=== PATIENT | male | born 1995 | race Caucasian/White ===

== ENCOUNTER 2017-01-20 12:55 | Emergency (ER) | payer OTHER ==
[2017-01-20] MEDS ORDERED: Lidocaine 2% PF * 5 ML VIAL ONE (13:43)
--- NOTE | 2017-01-20 13:47 | UC ---
Skin Complaint HPI - HPI Summary HPI Summary: Redness, swelling, painful lump L forearm starting a little over a week ago. Pt reports this was the last site he used to inject heroin. Denies hx of hospitalization for skin infections in the past. - History of Current Complaint Chief Complaint: UCSkin Time Seen by Provider: 01/20/17 13:35 Stated Complaint: ABCESS ON ARM Hx Obtained From: Patient Onset/Duration: Gradual Onset, Lasting Days Skin Exposure Onset/Duration: Days Ago Timing: Constant Onset Severity: Mild Current Severity: Moderate Location: Discrete Character: Pain, Redness, Raised Aggravating: Touch Alleviating: Nothing Associated Signs & Symptoms: Positive: Drainage - Allergy/Home Medications Allergies/Adverse Reactions: Allergies Allergy/AdvReac Type Severity Reaction Status Date / Time No Known Allergies Allergy Verified 05/08/16 21:59 Review of Systems Constitutional: Negative Skin: Other - L forearm lump Eyes: Negative ENT: Negative Respiratory: Negative Cardiovascular: Negative Gastrointestinal: Negative Genitourinary: Negative Motor: Negative Neurovascular: Negative Musculoskeletal: Negative Neurological: Negative Psychological: Negative All Other Systems Reviewed And Are Negative: Yes PMH/Surg Hx/FS Hx/Imm Hx Endocrine History Of: Denies: Diabetes, Thyroid Disease Cardiovascular History Of: Denies: Cardiac Disorders, Hypertension Respiratory History Of: Denies: COPD, Asthma GI/ History Of: Denies: Ulcer - Surgical History Surgical History: None - Family History Known Family History: Positive: None - Social History Alcohol Use: Occasionally Substance Use Type: Heroin Substance Use Comment - Amount & Last Used: daily Smoking Status (MU): Heavy Every Day Tobacco Smoker Type: Cigarettes Amount Used/How Often: 1/2 ppd Physical Exam Triage Information Reviewed: Yes Appearance: Well-Appearing, Pain Distress - with wound exam Vital Signs: Initial Vital Signs Temp 97.9 F 01/20/17 13:27 Pulse 91 01/20/17 13:27 Resp 18 01/20/17 13:27 BP 152/62 01/20/17 13:27 Pulse Ox 100 01/20/17 13:27 Vital Signs Reviewed: Yes Eye Exam: Normal, Other - PERRL Eyes: Positive: Conjunctiva Clear ENT Exam: Normal ENT: Positive: Normal ENT inspection, Hearing grossly normal, Pharynx normal, TMs normal Neck exam: Normal Neck: Positive: Supple, Nontender, No Lymphadenopathy Respiratory Exam: Normal Respiratory: Positive: Chest non-tender, Lungs clear, Normal breath sounds, No respiratory distress, No accessory muscle use Cardiovascular Exam: Normal Cardiovascular: Positive: RRR, No Murmur Musculoskeletal Exam: Normal Musculoskeletal: Positive: Strength Intact Neurological Exam: Normal Psychological Exam: Normal Skin Exam: Other - L forearm abscess spontaneously draining with surrounding cellulitis. Unable to feel edges of abscess due to iduration and cellulitis. Course/Dx - Diagnoses Provider Diagnoses: L forearm abscess I&D. L forearm cellulitis. IV drug abuse - Physician Notification/Consults Discussed Patient Care With: Dr. Hamm Time Discussed With Above Provider: 14:06 Instructed by Provider To: MD Will See In ED Procedures - Incision and Drainage Site: L forearm Anesthesia: Local - 2% Instrument(s): Scalpel - large pus return with foul odor, arm still firm and very painful after procedure Packing: Other - none; pt sent to ED for further evaluation and possible secondary procedure Discharge - Discharge Plan Condition: Stable Disposition: TRANS HIGHER LVL OF CARE FAC
[2017-01-20] MEDS ORDERED: Tetan/Diph/Pertus SYR(Tdap)* 0.5 ML SYR(BOOSTRIX) use SYR IM ONE (14:02)
[2017-01-20 14:16] VITALS: BP 131/70
== END 2017-01-20 14:19 | disposition short-term general hospital (02) ==
LOC: UCEAST 12:55
DX: L02.414 Cutaneous abscess of left upper limb (principal); L03.114 Cellulitis of left upper limb; F11.10 Opioid abuse, uncomplicated; F17.210 Nicotine dependence, cigarettes, uncomplicated
CPT/HCPCS: 10060; 87070; 87076; 87077; 87205; 87640; 87641; 90471; 90715; 99212; G0463

== ENCOUNTER 2017-01-20 14:55 | Emergency (ER) | payer OTHER ==
[2017-01-20] MEDS ORDERED: Clindamycin 600 MG IVPREMIX(* 600 MG in PREMIX* 0 ML IV ONE (15:51)
[2017-01-20] MEDS ORDERED: Vancomycin(*) 1,000 MG in NS 0.9% 250 ML* 250 ML IVPB ONE ×2 (15:51→17:00)
[2017-01-20] MEDS ORDERED: NS 0.9% 1000 ML* 1,000 ML IV ONE (15:51)
[2017-01-20] MEDS ORDERED: Piperac/Tazob 3.375 gm in NS* 3.375 GM/100 ML BAG IVPB ONE (15:55)
--- NOTE | 2017-01-20 16:04 | ED ---
Skin Complaint - HPI Summary HPI Summary: Patient is a 21yo IV drug user presents after transfer from [facility] with swelling, painful, raised, foul-odor lump on left forearm just distal to the left elbow. [facility] completed a I and D with moderate amount of drainage, but lump still with induration and pain. Patient also notes to limited ROM. Patient is able to flex and extend slowly with "extreme pain" and clench fist with difficulty. Patient notes 1 week history of lump which has progressively become worse since this am. He has felt diaphoretic with chills and generalized malaise. Slight scleral icterus on examination. Last injection of heroin 7 days ago. Previous Hx of MRSA per patient, but not related to IV drug use. Denies PRADO, N/V. Patient otherwise healthy and takes no medications. Denies SOB or chest pain. Patient admits to sharing needles. - History of Current Complaint Chief Complaint: EDRashSkinAbscess Time Seen by Provider: 01/20/17 15:35 Stated Complaint: SENT BY [facility] Hx Obtained From: Patient Onset/Duration: Started Days Ago Skin Exposure Onset/Duration: Weeks Ago Onset Severity: Severe Current Severity: Severe Pain Intensity: 9 Pain Scale Used: 0-10 Numeric Skin Location: Discrete - left forearm distal to the left elbow Aggravating Symptom(s): Touch Alleviating Symptom(s): Nothing Associated Signs & Symptoms: Drainage, Tenderness, Red Streaks - Allergy/Home Medications Allergies/Adverse Reactions: Allergies Allergy/AdvReac Type Severity Reaction Status Date / Time No Known Allergies Allergy Verified 01/20/17 14:57 PMH/Surg Hx/FS Hx/Imm Hx Previously Healthy: Yes Endocrine/Hematology History: Denies: Hx Diabetes, Hx Thyroid Disease Cardiovascular History: Denies: Hx Hypertension Respiratory History: Denies: Hx Asthma, Hx Chronic Obstructive Pulmonary Disease (COPD) GI History: Denies: Hx Ulcer - Cancer History Cancer Type, Location and Year: none Infectious Disease History: Yes Infectious Disease History: Reports: Hx of Known/Suspected MRSA Denies: Hx Hepatitis, Hx Human Immunodeficiency Virus (HIV), History Other Infectious Disease, Traveled Outside the [place] in Last 30 Days - Family History Known Family History: Positive: None - Social History Occupation: Unemployed Lives: With Family Alcohol Use: Occasionally Hx Substance Use: Yes Substance Use Type: Reports: Heroin Substance Use Comment - Amount & Last Used: last dose two weeks ago Smoking Status (MU): Heavy Every Day Tobacco Smoker Type: Cigarettes Amount Used/How Often: 1/2 ppd Review of Systems Positive: Fatigue Eyes: Negative Cardiovascular: Negative Respiratory: Negative Positive: Abdominal Pain - mild - diffuse Positive: no symptoms reported, see HPI Musculoskeletal: Negative Positive: Other - abscess distal to elbow of right forearm with drainage Neurological: Negative Psychological: Normal All Other Systems Reviewed And Are Negative: Yes Physical Exam Triage Information Reviewed: Yes Vital Signs On Initial Exam: Initial Vitals Temp Pulse Resp BP Pulse Ox 97.4 F 93 16 113/87 100 01/20/17 14:57 01/20/17 14:57 01/20/17 14:57 01/20/17 14:57 01/20/17 14:57 Vital Signs Reviewed: Yes Appearance: Positive: Well-Appearing, Pain Distress Skin: Positive: Warm, Skin Color Reflects Adequate Perfusion, Weeping Skin/ Lesions, Other - abscess of left forearm distal to elbow approximately 2cm in length with continuous draiange. Red streaking 3cm proximal to the elbow and down to the wrist, no hand involvement. Eyes: Positive: Normal, DE, Other: - slight scleral icterus Neck: Positive: Supple, No Lymphadenopathy Respiratory/Lung Sounds: Positive: Clear to Auscultation, Breath Sounds Present Cardiovascular: Positive: Normal Abdomen Description: Positive: Other: - slight diffuse tenderness present for 1 week - generalized malaise Bowel Sounds: Positive: Present Musculoskeletal: Positive: Normal Neurological: Positive: Sensory/Motor Intact, Alert, Oriented to Person Place, Time, Speech Normal Psychiatric: Positive: Normal - [place] Coma Scale Coma Scale Total: 15 Diagnostics - Vital Signs Vital Signs Temp Pulse Resp BP Pulse Ox 01/20/17 15:38 89 100 01/20/17 15:36 169/82 01/20/17 14:57 97.4 F 93 16 113/87 100 - Laboratory Result Diagrams: 01/20/17 15:55 01/20/17 15:55 Lab Statement: Any lab studies that have been ordered have been reviewed, and results considered in the medical decision making process. Re-Evaluation - Re-Evaluation First Eval Change: Unchanged - patient still complains of pain in forearm Second Eval Change: Improved - still with pain - giving toradol. patient unable to take opioids. Encouraged outpatient IBUprofen Course/Dx - Course Course Of Treatment: CT of arm shows cellulitis and myositis with a small abscess collection within the superficial aspect of the probable brachioradilais. Dr. Medellin consulted. D/t CT impression and patient afebrile and otherwise stable, will send home with outpatient abx therapy and follow up on Sunday with Dr. Medellin. Patient requesting HIV panel drawn. Elevated liver enzymes returned and hepatitis panel requested. Hep panel results will be available tomorrow on 01/21/17. Patient encouraged to follow up with infectious disease, Dr. Ponce for possible hepatitis. Patient admits to history of sharing needles. US gallbladder shows significantly thickened gallbladder. Likely d/t to secondary disease such as hepatitis. Will have patient follow up with Dr. Mccain regarding this issue. Dr Sheets consulted throughout care process. MRSA negative on wound culture. Will continue to treat with bactrim based on Dr Medellin recommendations as well as UPTODATE. Patient informed of results and instructions from Dr. Medellin for how to care for abscess until follow up. Patient agrees to call and follow up next week with all 3 MD's and accepting of discharge home. Patient is currently trying to seek addiction therapy and agrees to not use. Educated patient about drug abuse and recurrence of MRSA infection if IV drug use continues. Patient agrees. - Diagnoses Provider Diagnoses: Cutaneous abscess of left upper extremity Discharge - Discharge Plan Condition: Stable Disposition: HOME Prescriptions: Sulfamethox/Trimethoprim DS* [Bactrim DS 800/160 TAB*] 1 tab PO BID #20 tab Patient Education Materials: Abscess (ED) Referrals: Chi Ponce MD [Medical Doctor] - Jagdish Medellin MD [Medical Doctor] - No Primary Care Phys,NOPCP [Primary Care Provider] - Da Mccain MD [Medical Doctor] - Additional Instructions: Warm soaks in soap and water 2-3 times per day until healed. Bactrim twice daily for 10 days. Ibuprofen 600mg three times daily with meals for pain and inflammation. Follow up with orthopedics Dr. Medellin on Sunday. You will need to call for appt on Sunday. Follow up with Dr. Ponce next week. Call Sunday. Call Dr. Mccain's office Sunday for appt next week for gallbladder thickening and gall stones. Your hepatitis results will be completed tomorrow. Please follow up with infectious disease regarding these results and treatment if needed. If signs of systemic infection become worse such as fever, red streaking from the wound, continuous drainage - come back to ED. Images - Images Full Body (No Head): 1 - 2cm abscess with erythematous streaking to area proximal to elbow and down to the wrist with no hand involvement.
[2017-01-20 16:15] LABS: Hematocrit 45 % (42-52); Hemoglobin 14.9 g/dl (14.0-18.0); Mean Corpuscular HGB Conc 34 g/dl (31-36); Mean Corpuscular Hemoglobin 29 pg (27-31); Mean Corpuscular Volume 87 fL (80-94); Mean Platelet Volume 8 um3 (7.4-10.4); Red Blood Count 5.14 10^6/ul (4.0-5.4); Red Cell Distribution Width 14 % (10.5-15); White Blood Count 13.7 10^3/ul (3.5-10.8)
[2017-01-20 16:16] LABS: Add Diff/Slide Review? Slide Review Added; Comments Flag Yes
[2017-01-20 16:17] LABS: Albumin 3.3 g/dL (3.2-5.2); BUN/Creatinine Ratio 9.1 (8-20); C Reactive Protein 76.79 mg/L (< 5.00); Calcium 8.9 mg/dL (8.6-10.3); EGFR Non-African American 125.2 (>60); Globulin 3.3 g/dL (2-4); Potassium 4.2 mmol/L (3.5-5.0); Total Bilirubin 3.3 mg/dL (0.2-1.0); Total Protein 6.6 g/dL (6.4-8.9)
[2017-01-20] MEDS ORDERED: Iohexol 300* (CONTRAST) 10 ML SDV IV ONE (16:25)
[2017-01-20 16:31] LABS: Eosinophils % 2 % (0-6); Immature Granulocytes 15 % (0-9); Macrocytosis 1+; Microcytosis 1+; Neutrophil % 75 % (38-83); Toxic Granulation 1+
[2017-01-20 16:53] LABS: Erythrocyte Sed Rate 17 mm/Hr (0-14)
--- NOTE | 2017-01-20 17:07 | RAD ---
Indication: LEFT forearm abscess with clinical concern for pyomyositis. Comparison: No relevant prior exams available on the [facility] PACS. Technique: Contrast enhanced CT of the LEFT forearm from the elbow through the wrist. 100 mL Omnipaque 300 IV contrast. Multiplanar reformation including bone algorithm. Report: Diffuse subcutaneous edema. Negative for subcutaneous emphysema. Extending deep from the open wound at the volar radial margin of the proximal forearm there is a peripherally enhancing 4 cm AP by 0.4 cm transverse by 3 cm cephalocaudal small volume abscess collection within the lateral portion of the posterior compartment of the forearm which appears to involve the superficial portion of the brachioradialis muscle. No additional loculated fluid collections evident. No periosteal reaction, osteolysis, or osteosclerosis evident. No conspicuous foreign body evident. IMPRESSION: The constellation of findings is consistent with cellulitis and myositis with a small abscess collection within the superficial aspect of the probable brachioradialis muscle at the lateral portion of the posterior compartment contiguous with the dermal wound as described.
--- NOTE | 2017-01-20 18:52 | RAD ---
Indication: RIGHT upper quadrant pain. Elevated LFTs. LEFT forearm abscess. Comparison: No relevant prior exams available on the [facility] [place] [facility] PACS. Technique: RIGHT upper quadrant ultrasound. Report: Appropriate direction flow documented in the portal and hepatic veins. 20 cm cephalocaudal mildly enlarged liver demonstrates normal echogenicity. No focal hepatic lesions or biliary dilatation. 2.8 mm common bile duct. Contracted gallbladder limiting assessment. Thickened gallbladder wall up to 1.1 cm with intraluminal sonolucencies. No visualized gallstones or biliary sludge. Negative for sonographic Rodriguez's sign. Small volume of pericholecystic fluid. The pancreatic tail is partially obscured due to bowel gas. The visualized pancreas is unremarkable. Negative for ascites. 12.6 cm unremarkable RIGHT kidney. IMPRESSION: 1. Significantly thickened gallbladder wall likely secondary to systemic disease given absence of gallbladder distention, visualized stones, or sonographic Rodriguez's sign. 2. Mild hepatomegaly. No focal hepatic lesions evident. Correlate for potential hepatitis to account for the enlarged liver and gallbladder wall thickening.
[2017-01-20] MEDS ORDERED: Sulfamethox/Trimethoprim DS 800/160* TAB PO ONE (20:31)
--- NOTE | 2017-01-20 20:31 | ED ---
Progress - Progress Note Progress Note: Evaluated the patient, IVDA currently with draining left forearm abscess. Nontoxic appearance. Compartment are soft, minimal soft tissue swelling, no significant pain with active or passive ROM. No sign of compartment syndrome. Has close orthopedics followup and appropriate ABX. Course/Dx - Diagnoses Provider Diagnoses: Cutaneous abscess of left upper extremity
[2017-01-20] MEDS ORDERED: Ketorolac INJ* 60 MG/2 ML VIAL IV PUSH ONE (20:34)
[2017-01-20] MEDS ORDERED: Ketorolac INJ* 30 MG/ML 1 ML VIAL IV PUSH ONE (20:34)
[2017-01-20 20:47] VITALS: BP 153/74
[2017-01-22 12:24] LABS: Call Hep C TO BE CALLED
--- NOTE | 2017-01-25 09:30 | PN ---
Progress Note - Progress Note Note: Patient placed on bactrim at d/c for abscess per Dr arguelles. Culture MRSA negative and grew strept anginosus. Can continue bactrim as is IV drug user and is being followed by dr arguelles for this.
== END 2017-01-20 21:00 | disposition home or self-care (01) ==
LOC: ED 14:55
DX: L02.414 Cutaneous abscess of left upper limb (principal)
CPT/HCPCS: 36415; 76705; 80053; 80074; 83605; 85025; 85610; 85652; 85730; 86140; 86703; 87040; 87070; 87077; 87186; 87205; 87640; 87641; 96374; 96375; 99284; A9270-GY; J1885; J2543; J3370; Q9967